=== PATIENT | female | born 1990 | race Caucasian/White ===

== ENCOUNTER 2017-04-12 20:45 | Emergency (ER) | payer OTHER ==
[~2017-04-12] VITALS: Ht 170.2 cm; Wt 70.3 kg
[~2017-04-12 20:45] MED LIST: KEFLEX500 MG PO; NAPROSYN; NOHOMEMEDICATIONS; NORCO 5-325 TA1 EACH PO; ONDANSETRON HCL4 M2 PO; TRAMADOL 50 MG50 MG PO; ULTRAM 50MG TAB50 MG PO
[2017-04-12 21:06] LABS: ABSOLUTE EOSINOPHILS 0.1 thou/uL (0.0-0.7); ABSOLUTE MONOCYTES 0.4 thou/uL (0.0-1.2); ABSOLUTE NEUTROPHILS 3.1 thou/uL (1.6-8.1); BASOPHILS 0.4 %; EOSINOPHILS 1.7 %; HEMATOCRIT 34.9 % (37.0-47.0); HEMOGLOBIN 11.4 gm/dL (12.0-15.0); LYMPHOCYTES 21.1 %; MCH 25.9 pg (26.0-34.0); MCHC 32.6 g/dL (28.0-37.0); MCV 79.5 fL (80.0-100.0); MONOCYTES 8.3 %; MPV 8.3 fl. (7.2-11.1); NUCLEATED RBCS 0 /100WBC; PLATELET COUNT* 239 thou/uL (150-400); POLYS 68.5 %; RBC 4.39 mil/uL (4.20-5.00); RDW-CV 16.5 % (10.5-14.5); WBC 4.5 thou/uL (4.0-11.0)
[2017-04-12 21:08] LABS: URINE BILIRUBIN NEGATIVE (Negative); URINE BLOOD NEGATIVE (Negative); URINE CLARITY CLEAR; URINE COLOR YELLOW; URINE GLUCOSE-RANDOM NEGATIVE (Negative); URINE KETONES NEGATIVE (Negative); URINE LEUKOCYTES TRACE (Negative); URINE NITRITE NEGATIVE (Negative); URINE PROTEIN NEGATIVE (Negative); URINE UROBILINOGEN 0.2 E.U./dl (0.2-1.0)
[2017-04-12 21:14] LABS: BACTERIA >30 Many /HPF (None Seen); CASTS None Seen /LPF (None Seen); CRYSTALS None Seen /LPF (None Seen); MUCUS 4-6 Moderate strn/LPF (None Seen); SQUAMOUS 4-10 Moderate /LPF (0-3); URINE RBC 3-10 Few /HPF (0-2); URINE WBC 6-15 Few /HPF (0-5)
[2017-04-12 21:21] LABS: CALCIUM 8.4 mg/dL (8.5-10.1); CREATININE 0.8 mg/dL (0.6-1.3); POTASSIUM 3.7 mmol/L (3.5-5.1)
[2017-04-12 21:26] LABS: ALBUMIN 3.5 g/dL (3.4-5.0); TOTAL BILIRUBIN 0.1 mg/dL (<0.1-1.0); TOTAL PROTEIN 7.3 g/dL (6.4-8.2)
[2017-04-12] MEDS ORDERED: ZOFRAN ODT4 MG PO (22:16)
[2017-04-12] MEDS ORDERED: BENTYL 10 MG CA10 MG PO (22:16)
[2017-04-12] MEDS ORDERED: KEFLEX500 M1 PO (22:16)
[2017-04-12 23:19] VITALS: BP 112/57
== END 2017-04-12 23:20 | disposition home or self-care (01) ==
LOC: M.ERS 20:45
PROVIDERS: Physician Assistant
DX: N30.00 Acute cystitis without hematuria (principal); Z90.721 Acquired absence of ovaries, unilateral; Z98.890 Other specified postprocedural states; Z85.43 Personal history of malignant neoplasm of ovary; Z88.6 Allergy status to analgesic agent; Z88.5 Allergy status to narcotic agent; Z88.8 Allergy status to other drugs, medicaments and biological substances

== ENCOUNTER 2019-03-23 14:33 | Emergency (ER) | payer OTHER, MEDICAID ==
[~2019-03-23] VITALS: Ht 170.2 cm; Wt 68.0 kg
[~2019-03-23 14:33] MED LIST changes: +BENTYL 10 MG CA10 MG PO; +KEFLEX500 M1 PO; +ZOFRAN ODT4 MG PO
[2019-03-23 16:16] LABS: URINE BILIRUBIN NEGATIVE (Negative); URINE BLOOD NEGATIVE (Negative); URINE CLARITY CLEAR; URINE COLOR YELLOW; URINE GLUCOSE-RANDOM NEGATIVE (Negative); URINE KETONES NEGATIVE (Negative); URINE LEUKOCYTES-REFLEX 1+ (Negative); URINE NITRITE-REFLEX NEGATIVE (Negative); URINE PROTEIN NEGATIVE (Negative); URINE SPECIFIC GRAVITY 1.015 (1.005-1.030); URINE UROBILINOGEN 0.2 E.U./dl (0.2-1.0)
[2019-03-23 16:26] LABS: MUCUS 0-3 Light strn/LPF (None Seen); SQUAMOUS >10 Many /LPF (0-3)
[2019-03-23 16:27] LABS: CASTS None Seen /LPF (None Seen); CRYSTALS None Seen /LPF (None Seen)
[2019-03-23 16:28] LABS: BACTERIA-REFLEX 1-9 Few /HPF (None Seen); URINE RBC 0-2 Rare /HPF (0-2); URINE WBC-REFLEX 0-5 Rare /HPF (0-5)
[2019-03-23] MEDS ORDERED: TYLENOL WITH CO1 TA1 PO (16:57)
[2019-03-23] MEDS ORDERED: MEDROLDOSEPACK PO (16:57)
[2019-03-23] MEDS ORDERED: FLEXERIL PO (16:57)
[2019-03-23 17:14] VITALS: BP 120/82
== END 2019-03-23 17:15 | disposition home or self-care (01) ==
LOC: M.ERS 14:33
PROVIDERS: Physician Assistant
DX: M51.26 Other intervertebral disc displacement, lumbar region (principal); Z90.49 Acquired absence of other specified parts of digestive tract; Z90.721 Acquired absence of ovaries, unilateral; Z85.43 Personal history of malignant neoplasm of ovary; Z88.6 Allergy status to analgesic agent; Z88.5 Allergy status to narcotic agent; Z88.8 Allergy status to other drugs, medicaments and biological substances

== ENCOUNTER 2019-04-14 18:13 | Emergency (ER) | payer OTHER, MEDICAID ==
[~2019-04-14] VITALS: Ht 170.2 cm; Wt 77.1 kg
[~2019-04-14 18:13] MED LIST changes: +FLEXERIL PO; +MEDROLDOSEPACK PO; +TYLENOL WITH CO1 TA1 PO
[2019-04-14] MEDS ORDERED: VIBRAMYCIN 100100 M2 PO (19:44)
[2019-04-14 19:53] VITALS: BP 112/60
== END 2019-04-14 19:54 | disposition home or self-care (01) ==
LOC: M.ERS 18:13
DX: L02.412 Cutaneous abscess of left axilla (principal); Z88.6 Allergy status to analgesic agent; Z88.5 Allergy status to narcotic agent; Z90.49 Acquired absence of other specified parts of digestive tract; Z85.43 Personal history of malignant neoplasm of ovary; Z90.721 Acquired absence of ovaries, unilateral

== ENCOUNTER 2019-04-22 17:05 | Emergency (ER) | payer OTHER, MEDICAID ==
[~2019-04-22] VITALS: Ht 170.2 cm; Wt 90.7 kg
[~2019-04-22 17:05] MED LIST changes: +VIBRAMYCIN 100100 M2 PO
[2019-04-22 17:40] LABS: INFLUENZA A ANTIGEN Negative (Negative); INFLUENZA B ANTIGEN Negative (Negative)
[2019-04-22] MEDS ORDERED: PREDNISONE 20 M20 M1 PO (18:14)
[2019-04-22 18:32] VITALS: BP 118/62
== END 2019-04-22 18:32 | disposition home or self-care (01) ==
LOC: M.ERS 17:05
PROVIDERS: Nurse Practitioner Family
DX: J06.9 Acute upper respiratory infection, unspecified (principal); Z32.02 Encounter for pregnancy test, result negative; F17.210 Nicotine dependence, cigarettes, uncomplicated; Z88.6 Allergy status to analgesic agent; Z88.8 Allergy status to other drugs, medicaments and biological substances; Z90.49 Acquired absence of other specified parts of digestive tract; Z85.43 Personal history of malignant neoplasm of ovary; Z90.721 Acquired absence of ovaries, unilateral

== ENCOUNTER 2019-06-19 12:56 | Emergency (ER) | payer OTHER, MEDICAID ==
[~2019-06-19] VITALS: Ht 170.2 cm; Wt 90.7 kg
[~2019-06-19 12:56] MED LIST changes: +PREDNISONE 20 M20 M1 PO
[2019-06-19] MEDS ORDERED: NORFLEX100 MG PO (13:19)
[2019-06-19] MEDS ORDERED: LIDODERM1 EACH TOP (13:19)
[2019-06-19] MEDS ORDERED: DICLOFENAC SOD50 M1 PO (13:19)
[2019-06-19 13:28] VITALS: BP 124/67
== END 2019-06-19 13:30 | disposition home or self-care (01) ==
LOC: M.ERS 12:56
DX: G89.29 Other chronic pain (principal); M54.5 Low back pain; Z88.5 Allergy status to narcotic agent; Z88.6 Allergy status to analgesic agent; Z88.8 Allergy status to other drugs, medicaments and biological substances; Z90.49 Acquired absence of other specified parts of digestive tract; Z90.721 Acquired absence of ovaries, unilateral; Z85.43 Personal history of malignant neoplasm of ovary

== ENCOUNTER 2019-07-16 15:41 | Emergency (ER) | payer OTHER, MEDICAID ==
[~2019-07-16] VITALS: Ht 170.2 cm; Wt 90.7 kg
[~2019-07-16 15:41] MED LIST changes: +DICLOFENAC SOD50 M1 PO; +LIDODERM1 EACH TOP; +NORFLEX100 MG PO
[2019-07-16] MEDS ORDERED: ZOLOFT25 MG PO (15:59)
[2019-07-16] MEDS ORDERED: BIPOLAR MED (15:59)
[2019-07-16 16:28] LABS: INFLUENZA A ANTIGEN Negative (Negative); INFLUENZA B ANTIGEN Negative (Negative)
[2019-07-16] MEDS ORDERED: AMOXICILLIN 50500 MG PO (16:34)
[2019-07-16 16:53] VITALS: BP 113/57
== END 2019-07-16 16:53 | disposition home or self-care (01) ==
LOC: M.ERS 15:41
PROVIDERS: Family Medicine
DX: J02.0 Streptococcal pharyngitis (principal); J45.909 Unspecified asthma, uncomplicated; F31.9 Bipolar disorder, unspecified; Z90.49 Acquired absence of other specified parts of digestive tract; Z90.721 Acquired absence of ovaries, unilateral; Z85.43 Personal history of malignant neoplasm of ovary; Z88.6 Allergy status to analgesic agent; Z88.8 Allergy status to other drugs, medicaments and biological substances

== ENCOUNTER 2019-09-15 21:46 | Emergency (ER) | payer OTHER, MEDICAID ==
[~2019-09-15] VITALS: Ht 170.2 cm; Wt 81.7 kg
[~2019-09-15 21:46] MED LIST changes: +AMOXICILLIN 50500 MG PO; +BIPOLAR MED; +ZOLOFT25 MG PO
[2019-09-15] MEDS ORDERED: LORCET 5-325 M1 EACH PO (23:23)
[2019-09-15] MEDS ORDERED: FLEXERIL PO (23:23)
[2019-09-16 00:30] VITALS: BP 133/73
== END 2019-09-16 00:15 | disposition home or self-care (01) ==
LOC: M.ERS 21:46
DX: S46.212A Strain of muscle, fascia and tendon of other parts of biceps, left arm, initial encounter (principal); J45.909 Unspecified asthma, uncomplicated; F31.9 Bipolar disorder, unspecified; Z90.49 Acquired absence of other specified parts of digestive tract; Z90.721 Acquired absence of ovaries, unilateral; Z85.43 Personal history of malignant neoplasm of ovary; Z88.6 Allergy status to analgesic agent; Z88.8 Allergy status to other drugs, medicaments and biological substances; W18.39XA Other fall on same level, initial encounter; Y93.72 Activity, wrestling; Y92.89 Other specified places as the place of occurrence of the external cause; Y99.8 Other external cause status

== ENCOUNTER 2019-09-24 14:17 | Emergency (ER) | payer OTHER, MEDICAID ==
[~2019-09-24] VITALS: Ht 170.2 cm; Wt 83.9 kg
[~2019-09-24 14:17] MED LIST changes: +LORCET 5-325 M1 EACH PO
[2019-09-24] MEDS ORDERED: LATUDA20 MG PO (14:38)
[2019-09-24] MEDS ORDERED: BUSPIRONE HCL10 MG PO (14:38)
[2019-09-24] MEDS ORDERED: IBUPROFEN 800800 M1 PO (16:39)
[2019-09-24] MEDS ORDERED: NORCO 5-325 TA1 EAC1 PO (16:39)
[2019-09-24] MEDS ORDERED: FLEXERIL PO (16:39)
[2019-09-24 17:00] VITALS: BP 125/78
== END 2019-09-24 17:38 | disposition home or self-care (01) ==
LOC: M.ERS 14:17
DX: M25.512 Pain in left shoulder (principal); M25.522 Pain in left elbow; M25.532 Pain in left wrist; F17.210 Nicotine dependence, cigarettes, uncomplicated; J45.909 Unspecified asthma, uncomplicated; F31.9 Bipolar disorder, unspecified; Z90.49 Acquired absence of other specified parts of digestive tract; Z88.5 Allergy status to narcotic agent; Z88.8 Allergy status to other drugs, medicaments and biological substances; Z79.899 Other long term (current) drug therapy

== ENCOUNTER 2020-07-18 14:14 | Emergency (ER) | payer OTHER ==
[~2020-07-18] VITALS: Ht 170.2 cm; Wt 90.7 kg
[~2020-07-18 14:14] MED LIST changes: +BUSPIRONE HCL10 MG PO; +IBUPROFEN 800800 M1 PO; +LATUDA20 MG PO; +NORCO 5-325 TA1 EAC1 PO
[2020-07-18] MEDS ORDERED: DICYCLOMINE HCL20 MG PO (14:30)
[2020-07-18 14:59] LABS: ABSOLUTE EOSINOPHILS 0.1 thou/uL (0.0-0.7); ABSOLUTE LYMPHOCYTES 1.7 thou/uL (0.8-5.3); ABSOLUTE MONOCYTES 0.5 thou/uL (0.0-1.2); ABSOLUTE NEUTROPHILS 4.6 thou/uL (1.6-8.1); BASOPHILS 0.7 %; HEMATOCRIT 35.7 % (37.0-47.0); HEMOGLOBIN 11.5 gm/dL (12.0-15.0); LYMPHOCYTES 23.9 %; MCH 26.6 pg (26.0-34.0); MCHC 32.3 g/dL (28.0-37.0); MCV 82.4 fL (80.0-100.0); MONOCYTES 6.8 %; MPV 7.7 fl. (7.2-11.1); NUCLEATED RBCS 0 /100WBC; PLATELET COUNT* 299 thou/uL (150-400); POLYS 66.6 %; RBC 4.33 mil/uL (4.20-5.00); RDW-CV 14.8 % (10.5-14.5); WBC 6.9 thou/uL (4.0-11.0)
[2020-07-18 15:08] LABS: CALCIUM 8.4 mg/dL (8.5-10.1); CREATININE 0.8 mg/dL (0.6-1.3); POTASSIUM 3.7 mmol/L (3.5-5.1)
[2020-07-18 15:10] LABS: URINE BILIRUBIN NEGATIVE (Negative); URINE BLOOD NEGATIVE (Negative); URINE CLARITY CLEAR; URINE COLOR YELLOW; URINE GLUCOSE-RANDOM NEGATIVE (Negative); URINE KETONES NEGATIVE (Negative); URINE LEUKOCYTES-REFLEX NEGATIVE (Negative); URINE NITRITE-REFLEX NEGATIVE (Negative); URINE PROTEIN NEGATIVE (Negative); URINE SPECIFIC GRAVITY 1.015 (1.005-1.030); URINE UROBILINOGEN 0.2 E.U./dl (0.2-1.0)
[2020-07-18 15:13] LABS: ALBUMIN 3.6 g/dL (3.4-5.0); TOTAL BILIRUBIN 0.2 mg/dL (<0.1-1.0); TOTAL PROTEIN 7.4 g/dL (6.4-8.2)
[2020-07-18] MEDS ORDERED: APAP W/CODEINE1 TA2 PO (16:49)
[2020-07-18 17:00] VITALS: BP 108/52
--- NOTE | 2020-07-19 14:43 | EKG ---
[place] [address] ELECTROCARDIOGRAM REPORT Name: JAYLYN GOLDMAN Room: [facility]#: [id number] Admission: 07/18/20 Attend Phys: Discharge: 07/18/20 Date of : 89 Date of Service: 07/18/202 Report #: [id number] THIS REPORT FOR: //name// [facility] ED Test Date: 2020-07-18 Test Time: 14:22:26 Pat Name: JAYLYN GOLDMAN Department: Room: Gender: F [employer] Developer Automatic: : 1990 Requested By: River Andre Order Number: [id number] Mildred MD: Brenden Craft Measurements Intervals [place] Rate: 71 P: 45 HI: 148 QRS: 5 QRSD: 94 T: 12 QT: 380 QTc: 413 Interpretive Statements Sinus rhythm No previous ECG available for comparison Electronically Signed On 07-19-2020 14:43:26 CDT by Brenden Craft [email or web address] <ELECTRONICALLY SIGNED> By: Brenden Craft MD, [facility] 07/19/20 1443 142 142 Brenden Craft MD, FACC /EPI
== END 2020-07-18 17:00 | disposition home or self-care (01) ==
LOC: M.ERS 14:14
PROVIDERS: Physician Assistant
DX: R10.32 Left lower quadrant pain (principal); J45.909 Unspecified asthma, uncomplicated; Z88.6 Allergy status to analgesic agent; Z88.5 Allergy status to narcotic agent; Z88.8 Allergy status to other drugs, medicaments and biological substances; Z90.49 Acquired absence of other specified parts of digestive tract; Z85.43 Personal history of malignant neoplasm of ovary; Z90.721 Acquired absence of ovaries, unilateral

== ENCOUNTER 2020-08-15 15:53 | Emergency (ER) | payer OTHER, MEDICAID ==
[~2020-08-15] VITALS: Ht 170.2 cm; Wt 79.4 kg
[~2020-08-15 15:53] MED LIST changes: +APAP W/CODEINE1 TA2 PO; +DICYCLOMINE HCL20 MG PO; +PROAIR HFA8.5 GM INH
[2020-08-15 17:00] VITALS: BP 138/72
== END 2020-08-15 17:06 | disposition home or self-care (01) ==
LOC: M.ERS 15:53
DX: S93.501A Unspecified sprain of right great toe, initial encounter (principal); F31.9 Bipolar disorder, unspecified; J45.909 Unspecified asthma, uncomplicated; Z85.43 Personal history of malignant neoplasm of ovary; Z90.49 Acquired absence of other specified parts of digestive tract; Z90.721 Acquired absence of ovaries, unilateral; Z88.6 Allergy status to analgesic agent; Z88.8 Allergy status to other drugs, medicaments and biological substances; Z88.5 Allergy status to narcotic agent; W22.8XXA Striking against or struck by other objects, initial encounter; Y93.89 Activity, other specified; Y92.89 Other specified places as the place of occurrence of the external cause; Y99.8 Other external cause status